=== PATIENT | male | born 1970 | race Caucasian/White ===

== ENCOUNTER 2020-04-01 14:30 | Inpatient (IN) | payer OTHER ==
[~2020-04-01] VITALS: Ht 177.8 cm; Wt 69.7 kg
[2020-04-01] MEDS ORDERED: ROXICODONE 55 MG/TAB PO (16:31)
[2020-04-01 17:03] LABS: BASO % 0.4 % (0.0-2.0); EOS # 0.2 (0.0-0.7); EOS % 2.7 % (0-4.0); GRAN # 5.2 (1.4-6.5); GRAN % 62.6 % (42.2-75.2); HEMOGLOBIN 11.8 g/dl (13.5-18.0); LYMPH % 24.1 % (20.0-51.0); MEAN CELL VOLUME 94 fl (80.0-100.0); MEAN CORPUSCULAR HEMOGLOBIN 32 pg (27.0-31.0); MEAN CORPUSCULAR HGB CONC 33 g/dl (33.0-37.0); MONO # 0.8 (0.1-0.6); MONO % 9.5 % (1.7-9.3); PLATELET COUNT 294 K/mm3 (130-400); RED BLOOD COUNT 3.74 M/mm3 (4.20-5.60); REDCELL DISTRIBUTION WIDTH-CV 13.2 % (11.5-14.5)
[2020-04-01 17:16] LABS: ALBUMIN 4.3 gm/dL (3.5-5.0); BILIRUBIN,TOTAL 0.7 mg/dL (0.0-1.0); C-REACTIVE PROTEIN 2.2 mg/dL (0.0-0.9); CREATININE, serum 0.69 (0.66-1.25); POTASSIUM 4.4 mmol/L (3.4-5.0); TOTAL PROTEIN 7.5 gm/dL (6.4-8.2)
[2020-04-01 17:27] LABS: ERYTHROCYTE SEDIMENTATION RATE 20 mm/hr (0-15); HEMATOCRIT 35.3 % (42.0-52.0)
--- NOTE | 2020-04-01 20:10 | NUR ---
Arrived to room 343 via stretcher from ED. Admission assessment complete. Oriented to room and policy. Plan of care discussed for pain control/elevation/ice/CT scan in AM. Verbalizes understanding-denies questions/concerns. Requesting AC IV be DCd and new one placed as its painful/unusable. Restarted in left [id number] attempt. Instructed NWB to right lower extremity with crutch use. Call light in reach. Will monitor.
--- NOTE | 2020-04-01 20:30 | NUR ---
Ortho at bedside for consult. Dressing removed for evaluation. Noted to have three majvnthxd-tqkrlbj-vqxext approx 4cm-sutures, Medical aspect of [id number] and below right [id number]. serosanguineous fluid noted to ABD. Dressing-xeroform, ABD, fluffy white, splint and kerlix.
[2020-04-01 21:42] VITALS: BP 123/67; PULSE 70; TEMP 98.2
[2020-04-01 21:43] VITALS: BP 123/67; PULSE 18; TEMP 98.2
--- NOTE | 2020-04-01 22:00 | NUR ---
C/O pain to right foot-described as throbbing-rating pain 5/10 on pain scale. Oxycodone given per dr order. Fresh ice applied and right lower extremity elevated on pillows. Will continue to monitor.
[2020-04-02 00:18] VITALS: BP 125/71; PULSE 73; TEMP 98.1
--- NOTE | 2020-04-02 02:45 | NUR ---
C/O pain to right foot rating 4/10 on pain scale-described as constant throbbing. Oxycodone given per dr order. Denies nausea/shortness of breath. Ice pack on with elevation. WIll monitor.
[2020-04-02 03:44] VITALS: BP 125/74; PULSE 71; TEMP 97.5
--- NOTE | 2020-04-02 04:12 | NUR ---
Rested well this shift. Good pain control with oxycodone x2. Denies nausea/shortness of breath. VS remained stable. INT to left wrist flushes without difficulty. Right lower extremity with continuous ice pack and elevation. Call light in reach. Will monitor.
[2020-04-02 07:23] LABS: BASO % 0.6 % (0.0-2.0); EOS # 0.2 (0.0-0.7); EOS % 2.2 % (0-4.0); GRAN # 4.4 (1.4-6.5); GRAN % 63.2 % (42.2-75.2); HEMOGLOBIN 11.2 g/dl (13.5-18.0); LYMPH # 1.6 (1.2-3.4); LYMPH % 22.9 % (20.0-51.0); MEAN CELL VOLUME 95 fl (80.0-100.0); MEAN CORPUSCULAR HEMOGLOBIN 32 pg (27.0-31.0); MEAN CORPUSCULAR HGB CONC 33 g/dl (33.0-37.0); MEAN PLATELET VOLUME 9.2 fl (7.4-10.4); MONO # 0.7 (0.1-0.6); MONO % 10.7 % (1.7-9.3); PLATELET COUNT 287 K/mm3 (130-400); RED BLOOD COUNT 3.54 M/mm3 (4.20-5.60); REDCELL DISTRIBUTION WIDTH-CV 13.1 % (11.5-14.5)
[2020-04-02 07:41] VITALS: BP 125/69; PULSE 77; TEMP 98.4
[2020-04-02 07:41] LABS: HEMATOCRIT 33.7 % (42.0-52.0)
[2020-04-02 07:46] LABS: CALCIUM 8.6 mg/dL (8.4-10.2); CREATININE, serum 0.78 (0.66-1.25); POTASSIUM 4.2 mmol/L (3.4-5.0)
[2020-04-02] MEDS ORDERED: DOXYCYCLINE 10100 MG PO (10:44)
[2020-04-02 11:43] VITALS: BP 133/81; PULSE 63; TEMP 98.4
--- NOTE | 2020-04-02 14:00 | NUR ---
Right lower leg elevated on pillows. Dressing/ splint CDI. Pain controlled with prn Oxycodone. Verbalized understanding of home instructions. Dismissed to home per w/c with family.
--- NOTE | 2020-04-02 15:02 | NUR ---
Plan is to return home. Patient reports that he is from [facility]. Patient shares that he is stating with some friends/family locally. 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 Patient reports that he does not have a primary care back home but is open to a referral for a follow-up. Patient is currently uses crutches and denies any other DME use. Patient reports that he is generally health. Patient repeorts that his EDIE Uribe is his EMR contact . Patient reports that he obtains medications from [facility]. Denies the need for Homehealth. No additional concerns identified.
== END 2020-04-02 14:00 | disposition home or self-care (01) | DRG 863 ==
LOC: COL.ER 14:30 → SURG 18:17
PROVIDERS: Emergency Medicine; Nurse Practitioner Family; ADMIT Internal Medicine
DX: T81.40XA Infection following a procedure, unspecified, initial encounter (principal); T79.A21A Traumatic compartment syndrome of right lower extremity, initial encounter; S92.901A Unspecified fracture of right foot, initial encounter for closed fracture; S97.101A Crushing injury of unspecified right toe(s), initial encounter; X58.XXXA Exposure to other specified factors, initial encounter; Y92.79 Other farm location as the place of occurrence of the external cause; F17.210 Nicotine dependence, cigarettes, uncomplicated
CPT/HCPCS: 99223-AI; 99239; J1644; J2405; J2543; J3010; J3370; J7030; J7050; L4386